=== PATIENT | female | born 1930 | race Caucasian/White ===

== ENCOUNTER 2016-11-02 09:58 | Inpatient (IN) ==
--- NOTE | 2016-11-02 10:16 | EKG Report ---
Test Performed on : 11/02/2016 10:04:45 AM Test Reason : cp Blood Pressure : / mmHG Vent. Rate : 075 BPM Atrial Rate : 075 BPM P-R Int : 180 ms QRS Dur : 082 ms QT Int : 426 ms P-R-T Axes : 045 -10 031 degrees QTc Int : 475 ms Sinus rhythm. with occasional premature ventricular complexes. Moderate voltage criteria for LVH, may be normal variant Borderline ECG No previous ECGs available Unconfirmed Result
[2016-11-02] MEDS ORDERED: NS 1,000 ML IV PRN (10:38)
[2016-11-02 10:50] LABS: MANUAL DIFF NEEDED? NO
[2016-11-02 10:56] LABS: BASO% 0.2 % (0.0-0.8); EOS# 0.41 X1000 (0.0-0.7); EOS% 3.7 % (0.0-10.0); HEMATOCRIT 43.8 % (37.0-47.0); HEMOGLOBIN 14.4 g/dL (12.0-16.0); IMM GRAN# 0.03 X1000 (0.0-0.04); IMM GRAN% 0.3 % (0.0-0.5); LYMPH# 2.29 X1000 (1.2-3.4); LYMPH% 20.7 % (20.5-51.1); MCH 29.5 PG (27-31); MCHC 32.9 g/dL (33-37); MCV 89.8 FL (81-99); MONO# 0.64 X1000 (0.11-0.59); MONO% 5.8 % (1.7-9.3); MPV 10.6 FL (7.4-10.4); NEUT% 69.3 % (42.2-75.2); PLT 340 X1000 (130-400); RBC 4.88 XMIL (4.2-5.4)
--- NOTE | 2016-11-02 11:04 | PROVIDER DOCUMENTATION ---
HPI-Syncope/Dizziness - General Chief Complaint: Weakness Stated Complaint: syncopal episode Time Seen by Provider: 11/02/16 10:09 Source: patient, family Allergies/Adverse Reactions: Patient Allergies Allergy/AdvReac Type Severity Reaction Status Date / Time No Known Allergies Allergy Verified 11/02/16 10:26 Home Medications: Home Medication List Medication Instructions Recorded Confirmed Last Taken Type Aspirin 325 mg PO DAILY 11/02/16 11/02/16 11/02/16 08:00 History Duloxetine HCl [Cymbalta] 30 mg PO DAILY 11/02/16 11/02/16 11/02/16 08:00 History Glucosamine/D3/Boswellia Nayely 1 each PO DAILY 11/02/16 11/02/16 11/02/16 08:00 History [Osteo Bi-Flex Tablet] Lisinopril 5 mg PO DAILY 11/02/16 11/02/16 11/02/16 08:00 History [place]-3 Fatty Acids [Fish Oil] 300 mg PO DAILY 11/02/16 11/02/16 11/02/16 08:00 History - History of Present Illness-Syncope/Dizzy Nature of Presenting Problem: 86 Y/O F WAS FOUND UNRESPONDING IN HER BATHROOM THIS MORNING BY HER AID. PATIENT IS AOX2, BUT DOES NOT REMEMBER THE INCIDENCE. AID PROVIDED THE HISTORY. SHE STATED THAT SHE HEARD HER FALLING ON HER BATHROOM COMMODE, WHEN SHE WENT TO HELP HER AND FOUND HER UNRESPONSIVE FOR FEW SECONDS THEN WAS ABLE TO STAND UP AND WALK TO THE LIVING ROOM. FEW MINUTES LATER, SHE FOUND HER UNRESPONSIVE AGAIN TO VERBAL AND PAINFUL STIMULI. SHE DENIES URINARY INCONTINENCE OR ANY SEIZURE LIKE EPISODE. SHE STATED THAT SHE HAD A SIMILAR ACOUPLE OF WEEKS AGO AND WAS TRANSFERED TO [facility] WHERE THEY TOLD HER THAT HER MAGNESIUM LEVEL WAS LOW. Prior Episodes: reports: multiple episodes today, recent history Onset/Duration: reports: 1-3 hours ago Timing: reports: gone now Position/Activity at time of episode: reports: sitting Symptoms prior to episode: reports: unknown Context: reports: became unresponsive Loss of Consciousness: dazed Current Symptoms: reports: none/feels normal Recently Seen Here or By Another Healthcare Provider: No - Dizziness Dizziness Related Current/Associated Symptoms: reports: none/feels normal Review of Systems - Adult - REVIEW OF SYSTEMS - ADULT Constitutional: reports: no symptoms reported Eyes: reports: no symptoms reported Ears, Nose, Mouth & Throat: reports: no symptoms reported Cardiovascular: reports: no symptoms reported Respiratory: reports: shortness of breath Gastrointestinal: reports: no symptoms reported Genitourinary: reports: no symptoms reported Musculoskeletal: reports: no symptoms reported Integumentary: reports: no symptoms reported Neurological: reports: syncope. denies: seizure, tremors Psychiatric: reports: no symptoms reported Past History - Adult - PAST MEDICAL HISTORY-ADULT Review of Records: reports: Nursing Assessment Review, Medications Reviewed Major Childhood Illnesses: reports: denies history Cardiovascular: reports: HTN Respiratory: reports: denies history Gastrointestinal: reports: denies history Neurological: reports: TIA Endocrine/Immune: reports: denies history Physical Exam-General - PHYSICAL EXAM-ADULT Initial Vital Signs Reviewed: Yes - CONSTITUTIONAL General Appearance: appears well, alert, no apparent distress - EYES Eyes: PERRL/EOMI - HEAD, EARS, NOSE, MOUTH & THROAT HENMT: normocephalic/atraumatic - NECK Neck: supple - RESPIRATORY Respiratory: lungs clear - CARDIOVASCULAR Cardiovascular: regular rate, rhythm - GASTROINTESTINAL (ABDOMEN) Abdominal Exam: normal bowel sounds, soft - LYMPHATIC Lymphatic: no adenopathy - MUSCULOSKELETAL Extremity: no pedal edema DTR: knee (R): 2+, knee (L): 2+ - SKIN Integumentary: normal color - NEUROLOGIC Neurologic: no motor/sensory deficits - PSYCHIATRIC Psych/Mental Status: oriented x 3 Progress - PLAN OF CARE/RESULTS Progress/Plan/Lab Results: Vital Signs - 24 hr 11/02/16 10:17 Pulse Rate 77 Respiratory 18 Rate Blood Pressure 154/65 O2 Sat by Pulse 94 L Oximetry Laboratory Tests 11/02/16 10:15 WBC 11.08 H RBC 4.88 Hgb 14.4 Hct 43.8 MCV 89.8 MCH 29.5 MCHC 32.9 L RDW Std Deviation 13.1 Plt Count 340 MPV 10.6 H Immature Gran % (Auto) 0.3 Neut % (Auto) 69.3 Lymph % (Auto) 20.7 [place] % (Auto) 5.8 Eos % (Auto) 3.7 Baso % (Auto) 0.2 Immature Gran # (Auto) 0.03 Neut # (Auto) 7.69 H Lymph # (Auto) 2.29 [place] # (Auto) 0.64 H Eos # (Auto) 0.41 Baso # (Auto) 0.02 - EKG 1 Time of EKG reading by physician:: 10:30 EKG Read and Signed by:: Lakisha Nieves EKG Interpretation (*Must complete 3 of following elements*): Abnormal Rate: 75 QRS: normal DE Interval: normal Prior EKG Comparison: unchanged from prior Comments: Sinus rythm with PVCs - CONSULTS/PCP/HOSPITALIST Notification #1 *Consult/PCP/Hospitalist*: Dr. Godfrey Time Discussed: 14:10 Consult Disposition: Admit (Telemetry / Observation) Departure - Departure Time of Disposition Order: 14:11 DIAGNOSIS: Syncope and collapse Disposition: ADMITTED INPATIENT 09 Certified Medical Emergency: Emergent Condition: Fair Referrals: Lo Doyle MD [Primary Care Provider] -
[2016-11-02] MEDS ORDERED: PLAVIX PO ONE (11:07)
[2016-11-02] MEDS ORDERED: ASPIRIN PO ONE (11:07)
[2016-11-02] MEDS ORDERED: LIPITOR PO ONE (11:07)
[2016-11-02 11:25] LABS: AGAP 16; ALKALINE PHOSPHATASE 102 U/L (32-104); BUN 17 mg/dL (8-22); CHLORIDE 99 mmol/L (98-107); COSMO 275; DIRECT BILIRUBIN < 0.20 mg/dL (0.00-0.20); GOT 28 U/L (10-30); GPT 31 U/L (10-36); MAGNESIUM 1.9 mg/dL (1.5-2.7); POTASSIUM 4.2 mmol/L (3.5-5.1); SODIUM 136 mmol/L (136-145); TCO2 21 mmol/L (25-35); TOTAL BILIRUBIN 0.45 mg/dL (0.20-1.00); TOTAL PROTEIN 7.5 g/dL (6.3-8.3)
--- NOTE | 2016-11-02 11:40 | Diag Imaging Result Document ---
PROCEDURE NAME: HEAD W/O CONTRAST - 11/02/[address]: A CT dose reduction protocol was used. COMPARISON: Brain MRI 05/30/2016. FINDINGS: The ventricles and sulci are normal in size and contour. Stable mild periventricular white matter chronic microvascular disease. There is extremely severe vascular calcification of the carotid siphons. No intracranial mass or hemorrhage. The skull is intact. The sinuses, mastoids, and middle ears are clear. IMPRESSION: Chronic ischemic changes of the brain. No acute disease or change from prior. [facility]
[2016-11-02 11:47] LABS: INR 0.97; PROTIME 10.2 Seconds (9.2-11.7)
--- NOTE | 2016-11-02 13:54 | HISTORY AND PHYSICAL ---
HISTORY OF PRESENT ILLNESS: She presented after syncopal episode. Apparently she was standing up, went from the sofa to the kitchen table. They were sitting down, they prayed. When she quit, they noticed her head was slumped back in the chair and she was unconscious. Her friend and sitter tried to sit her down but was unable to get her out of the chair. Apparently had an episode just like this two weeks ago. At that time they noticed that her pressure was low when paramedics arrived. She went to [facility]. She had an extensive workup but not sure what all that included, but did not find anything except her magnesium was reportedly low and they changed up her blood pressure medicines different scheduling. PAST MEDICAL HISTORY: 1. Borderline diabetes mellitus. 2. Hypertension. 3. Gastroesophageal reflux disease. SOCIAL HISTORY: Negative for alcohol or tobacco. FAMILY HISTORY: Mother with heart problems. History stroke, coronary artery disease. Father with liver cancer. She has been told she is followed by Dr. Shafer in [place]. It seems like she might have had some mini strokes. She has had some memory issues but apparently no true focal neurologic deficits. REVIEW OF SYSTEMS: General: No weight gain or loss. No fever or chills. HEENT: Unremarkable. Respiratory: No increased work of breathing or dyspnea. Cardiovascular: No chest pain or tachy palpitation. GI: Unremarkable. : Unremarkable. Musculoskeletal/Neurologic: No significant complaints Endocrinologic/Hematologic: No significant history of blood sugar. LABS: Potassium 4.2, sodium 136, chloride 99, bicarb 21, BUN 17, creatinine 1.0, blood sugar 132, calcium 10.0, magnesium 1.9. Albumin 4.0, white blood cell count [id number], hematocrit 43, platelet count 340,000. MCV was 89. EKG in the emergency room shows normal sinus rhythm. There were some PVCs appreciated, no ST-segment changes. Normal axis. Really unremarkable EKG. A CT of the head without contrast. CT of the head showed chronic ischemic changes in the brain, no acute disease. No change from prior. PHYSICAL EXAMINATION: VITAL SIGNS: Temperature is afebrile, pulse 78, respirations 20, blood pressure 172/105. Weight 130 pounds. Height 5 feet 3 inches. HEENT: Pupils equal, round, react to light and accommodation. CVP less than 6 cm. RESPIRATORY: Lungs are clear lung rosa. CARDIOVASCULAR: Regular rate without murmur or S3. ABDOMEN: Soft. Skin is warm and dry. NEUROLOGIC: Cranial nerves 2-12 intact. Motor strength and sensory intact. ASSESSMENT AND PLAN: 1. Syncopal episode. The differential is vasovagal syncope, arrhythmia or seizure type activity. Apparently she stayed off Cymbalta for a while and recently was started back on it. She is on a low dose of lisinopril 5 mg a day, aspirin 325 mg a day, osteo Bi-Flex 1 a day, [place]-3 fatty acid 300 mg daily. 2. Mild early diabetes mellitus type 2. Not on any medications. 3. Apparently history of hypertension. 4. She has not been eating as much. Appetite is going down. On not sure how much she has been drinking fluids. 5. We will check orthostatic pressures. We will ask cardiology to render their opinion is well known. Put her on a diabetic diet and watch on licensed social worker, see if we can get some information from [facility] on recent hospitalization. cc: Terence Arroyo MD
[2016-11-02] MEDS ORDERED: ZOFRAN IV PRN (15:07)
[2016-11-02] MEDS ORDERED: TYLENOL PO PRN (15:07)
[2016-11-02] MEDS: HUMULIN R SUBQ SCH ×2 (16:25→22:22)
[2016-11-02 17:22] LABS: URINE MICRO REVIEW NEEDED? NO; URINE SOURCE CLEAN CATCH
[2016-11-02 17:30] LABS: BILIRUBIN URINE NEGATIVE (NEGATIVE); BLOOD URINE NEGATIVE (NEGATIVE); COLOR YELLOW; GLUCOSE URINE NEGATIVE (NEGATIVE); LEUKOCYTES URINE LARGE (NEGATIVE); NITRITE URINE NEGATIVE (NEGATIVE); PROTEIN URINE NEGATIVE (NEGATIVE); SP GRAVITY URINE 1.007; TURBIDITY URINE CLEAR (CLEAR); UROBILINOGEN URINE NORMAL (NORMAL)
[2016-11-02 17:46] LABS: UR AMPHETAMINES QUAL NONE DETECTED (NONE DETECT); UR BARBITUATES QUAL NONE DETECTED (NONE DETECT); UR BENZODIAZEPIN QUAL NONE DETECTED (NONE DETECT); UR CANNABINOIDS QUAL NONE DETECTED (NONE DETECT); UR COCAINE QUAL NONE DETECTED (NONE DETECT); UR METHADONE QUAL NONE DETECTED (NONE DETECT); UR OPIATES QUAL NONE DETECTED (NONE DETECT); UR OXYCODONE QUAL NONE DETECTED (NONE DETECT); UR PCP QUAL NONE DETECTED (NONE DETECT)
[2016-11-02 17:54] LABS: URINE WBC 20-40 /HPF (<10)
[2016-11-02 17:55] LABS: UR EPITHELIAL CELLS >10 /HPF (<10); URINE BACTERIA NEGATIVE /HPF; URINE CULTURE NEEDED? YES; URINE RBC <10 /HPF (<10)
[2016-11-02] MEDS ORDERED: MAG-OX PO SCH (21:00)
[2016-11-02 22:40] VITALS: BP 174/60
[2016-11-03] MEDS ORDERED: PRILOSEC PO SCH (07:00)
[2016-11-03] MEDS ORDERED: PRINIVIL PO SCH (09:00)
[2016-11-03] MEDS ORDERED: CYMBALTA PO SCH (09:00)
[2016-11-03] MEDS ORDERED: FISH OIL CONCENTRATE PO SCH (09:00)
[2016-11-03] MEDS ORDERED: ASPIRIN PO SCH (09:00)
[2016-11-03] MEDS ORDERED: GLUCOSAMINE 500 MG/CHONDROITIN 400 MG PO SCH (09:00)
--- NOTE | 2016-11-03 10:06 | CONSULTATION ---
DATE OF CONSULTATION: 11/03/2016 REQUESTING PHYSICIAN: Hospitalist. REASON FOR CONSULTATION: Syncope. HISTORY: Mrs. Castaneda is a pleasant 86-year-old female patient of Dr. Lo Doyle from [place] who presented to the hospital for admission on November 02. The patient was sitting at the breakfast table with her best friend. They were saying their prayers before eating breakfast, and all of a sudden she became unresponsive. According to her friend, she leaned backwards and stayed seated at the chair, not really very stiff and not jerking. She would not respond. Her head was tilted backwards and she was staring and not talking. The friend called 911, and within 1-2 minutes, she started to come back and started to mumble a few words. Eventually , she recovered consciousness and was brought to the emergency room department. They have done a number of basic studies. No significant abnormality of the heart rhythm was noted on the initial EKG which was done at 10:04 in the morning. At that time, her pulse rate was 75. She had one isolated PVC, and the EKG showed no ischemic changes. 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 There was also a suggestion of fairly extensive white matter microangiopathy. The patient had a carotid ultrasound done in the recent past, May 30, reported by Dr. Cornelio Nieto indicating no hemodynamically significant flow-limiting stenosis in both carotid arteries. The patient and the friend said that approximately 3 weeks ago when she was visiting her granddaughter in [place], a similar episode happened at about 3 o'clock in the morning when she got up to go to the bathroom. She was sitting at the commode, and she became unresponsive. The granddaughter who apparently has some medical training--I believe she is a physician sales service assistant-- checked her pulse. They could not find a pulse. They helped her to the floor. They actually even did CPR on her, according to the friend, and they took her to [facility] where they ran some basic tests, and they only kept her overnight. She believes they may have done an echocardiogram, and they were told that she had low magnesium, low potassium, and also evidence of diabetes mellitus, and she was discharged to the care of her primary care doctor in [place]. She saw her primary care doctor about 5 days ago on Saturday, and on auscultation , she noted a few skipped beats but nothing dramatic. The patient has been getting home health for the past 3 weeks since her discharge from [facility], and nothing dramatic has happened. The patient denies having any chest pains, any significant dyspnea, no swelling of the legs. She has some difficulty with her legs. She describes some sort of pain or claudication or hesitation to walk. She went to see a neurologist, Dr. Shafer in [place], about 3 or 4 months ago, and he initiated treatment with Cymbalta for her. PAST MEDICAL HISTORY: Her past medical history is only positive for hypertension for a number of years, and she just learned that she is diabetic after the [facility] admission. She had some issues with some heartburn and gastric reflux in the past. SURGICAL HISTORY: Her surgical history is really negative. She has never had a hysterectomy or cholecystectomy. SOCIAL HISTORY: She is a . She gave to 2 children, ages now 57 and 55. They both live in [place]. Her about 18 years ago, and he was a dialysis patient. She was the caregiver for a long time, and apparently that took a toll on her. She has never been a smoker. 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 FAMILY HISTORY: Mother of a stroke age 74. Sister of a stroke age 82. REVIEW OF SYSTEMS: Over the course of the past few months or years, the friend has noted that the patient has some difficulty finding words. She also quit dancing. According to the friend, they used to go dancing very frequently. However, about a year and a half or two years ago, she just quit doing that. Then she has been complaining of the symptoms of the legs where she cannot really walk too much or it seems like she has no control of the legs at times. She may have some underlying fear of falling, although she has not suffered any recent falls. MEDICATIONS: Medications reported at this time included lisinopril and Cymbalta. PHYSICAL EXAMINATION TODAY: Her physical examination today shows the following : Vital signs: Temperature 98.4, pulse 86, respirations 16, blood pressure 153/96. General: She is awake, alert, oriented, in no distress. HEENT/Neck: No jugular venous distention, no bruits. She is normocephalic. Eyes are normal. Interestingly, she has a little bit of a torus palatinus. Oral mucosa looks normal. Chest: Her chest is very clear to auscultation and percussion. Excursion of the lungs is normal. Cardiac: Heart sounds are rate and rhythm. Occasionally, I can hear an extrasystole. She has no murmurs or gallop. Abdomen: Nontender. I do not hear any abdominal bruits. There is no hepatomegaly. Extremities: Showed slightly decreased muscle mass in the legs, no edema. Pulses are diffusely diminished in both lower extremities. I could not hear any bruits at the level of the femoral arteries. Neurological: Generally, she appears to be alert, conversant, oriented x3. Moves four extremities equally. Her cranial nerves appear to be normal. BLOOD WORK: At the time of initial presentation, her sodium, potassium, BUN and creatinine were all within normal limits. IMPRESSION: 1. Patient presenting with recurrent syncope. My suspicion is this may be vasodepressor type of syncope. The patient has been taking Cymbalta, and she is taking also an LOULOU inhibitor. This happened when she was fasting. The previous episode also happened in the middle of the night when she may have been potentially hypovolemic. The possibly of an arrhythmia cannot be excluded, and the possibility of structural heart disease cannot be excluded. 2. Radiographic and clinical suspicion of lacunar strokes in the left frontal lobe and in the nusrat. 3. Diabetes mellitus type 2 recently diagnosed. 4. Long-term history of hypertension. 5. Chronic pain in the legs, possibly neuropathy, possibly claudication. RECOMMENDATION: From cardiology viewpoint, I really need to get a hold of the echocardiographic results that were done recently. I would like to repeat the echo if we do not have any available. I would prescribe a 21-day [place] monitor to evaluate for arrhythmia. I would suggest to discontinue Cymbalta and to encourage fluid intake and request additional intervention from the neurologist for the management of her lower extremity discomfort. Vascular disease of the legs needs to be excluded before we do anything else. I would suggest to obtain a Doppler evaluation of the lower extremities. My plan in terms of long-term followup would include to obtain electively a myocardial perfusion stress test if her echocardiogram does not reveal any wall motion abnormality, and further intervention will be suggested depending on her clinical course. Thank you again for asking us to participate in her evaluation. Best regards. cc: Chauncey Quintero MD MTDD
--- NOTE | 2016-11-03 14:19 | PROGRESS NOTE ---
DATE: 11/03/2016 SUBJECTIVE: Ms. Castaneda has not had any trouble, no presyncopal or syncopal events. Since she has been here, her monitor has been clean. She stayed in sinus rhythm. Cardiology has evaluated. I suspect she has had a vasovagal event. We are going to set her up for a Holter monitor. I think that she can go home, and I recommend that she stop the lisinopril and stop the Cymbalta but stay on her vitamins and low-dose aspirin and fish oil. ASSESSMENT AND PLAN: Syncopal event, suspect vasovagal. Recommend stop her lisinopril and her Cymbalta, continue her other medications and discharge her home. cc: Terence Arroyo MD
--- NOTE | 2016-11-03 15:30 | DISCHARGE SUMMARY ---
ADMISSION DATE: 11/02/2016 DISCHARGE DATE: Ms. Castaneda was admitted on . Presented with a syncopal episode witnessed by her friend and sitter. She had just gone from the sofa to the table and sat down and had just finished praying and then passed out. They could not get her out of the chair to lie her down. Apparently had an event like this two weeks ago, went to [facility]. Workup was unrevealing. She had was told she had mild low magnesium, I think her level was 1.6 and they had stopped her Dyazide and I think they started her on some lisinopril. She had also been off her Cymbalta since that previous event but restarted it about 3 days ago. On the monitor remained in sinus rhythm. Blood pressures look good. I did not see any significant orthostasis but it is very possible she could have some dysautonomia but felt she wanted go home. [place] she could go home on 11/03/2016. We will try to set up for an event monitor and follow up with Cardiology. She will follow up with Dr. Doyle and have her hold her Cymbalta and hold her lisinopril. I suspect this was a vasovagal event. cc: Terence Arroyo MD
[2016-11-03 17:03] LABS: MANUAL DIFF NEEDED? NO
[2016-11-03 17:59] LABS: BASO% 0.2 % (0.0-0.8); EOS# 0.11 X1000 (0.0-0.7); EOS% 1.2 % (0.0-10.0); HEMATOCRIT 39.6 % (37.0-47.0); HEMOGLOBIN 13.2 g/dL (12.0-16.0); IMM GRAN# 0.02 X1000 (0.0-0.04); IMM GRAN% 0.2 % (0.0-0.5); LYMPH# 2.34 X1000 (1.2-3.4); LYMPH% 26.5 % (20.5-51.1); MCH 29.7 PG (27-31); MCHC 33.3 g/dL (33-37); MCV 89.2 FL (81-99); MONO# 0.78 X1000 (0.11-0.59); MONO% 8.8 % (1.7-9.3); MPV 9.9 FL (7.4-10.4); NEUT% 63.1 % (42.2-75.2); PLT 361 X1000 (130-400); RBC 4.44 XMIL (4.2-5.4)
[2016-11-03 18:05] LABS: INR 0.98; PROTIME 10.3 Seconds (9.2-11.7); PTT 24.1 Seconds (22.0-36.0)
[2016-11-03 18:07] LABS: HEMOGLOBIN A1C 6.2 % (4.8-6.0)
[2016-11-03 18:29] LABS: AGAP 15; ALBUMIN 3.5 g/dL (3.5-5.0); ALKALINE PHOSPHATASE 91 U/L (32-104); BUN 14 mg/dL (8-22); CALCIUM 9.2 mg/dL (8.8-10.2); CHLORIDE 104 mmol/L (98-107); COSMO 281; GOT 21 U/L (10-30); GPT 27 U/L (10-36); MAGNESIUM 1.7 mg/dL (1.5-2.7); POTASSIUM 3.9 mmol/L (3.5-5.1); SODIUM 140 mmol/L (136-145); TCO2 21 mmol/L (25-35); TOTAL BILIRUBIN 0.37 mg/dL (0.20-1.00); TOTAL PROTEIN 6.7 g/dL (6.3-8.3)
[2016-11-03 18:43] LABS: FREE T4 1.14 ng/dL (0.93-1.70)
[2016-11-03] MEDS: HUMULIN R SUBQ SCH (19:41)
--- NOTE | 2016-11-03 21:33 | EKG Report ---
Test Performed on : 11/03/2016 07:27:53 AM Test Reason : chest pain Blood Pressure : / mmHG Vent. Rate : 086 BPM Atrial Rate : 086 BPM P-R Int : 186 ms QRS Dur : 082 ms QT Int : 402 ms P-R-T Axes : 041 -07 043 degrees QTc Int : 481 ms Sinus rhythm. with occasional premature ventricular complexes. Minimal voltage criteria for LVH, may be normal variant Borderline ECG When compared with ECG of 02-NOV-2016 10:04, (Unconfirmed) No significant change was found Confirmed by Salvador JJ, Rylan Dao ([id number]) on 11/04/2016 12:56:48 PM
== END 2016-11-03 13:45 | disposition home or self-care (01) ==
LOC: EDBD → ED 09:58 → 3N 14:40 → SURHOLD 11-03 13:45
PROVIDERS: ATTEND Emergency Medicine